=== PATIENT | female | born 1940 | race Asian ===

== ENCOUNTER 2018-10-13 07:30 | Outpatient (CLI) | payer MEDICARE | END 2018-10-13 23:59 | disposition home or self-care (01) | LOC: CFH 07:30 | PROVIDERS: ATTEND Internal Medicine Cardiovascular Disease | DX: I08.1 Rheumatic disorders of both mitral and tricuspid valves (principal) | CPT/HCPCS: 78452; 93017; 93306; A9502; J2785 ==